=== PATIENT | male | born 1965 | race African-American/Black ===

== ENCOUNTER 2020-01-22 19:54 | Emergency (ER) | payer BC ==
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
--- NOTE | 2020-01-22 20:42 | CR ---
Lumbar spine: AP, lateral and coned-down lateral view centered to the lumbosacral junction were obtained. Slight posterior disc space narrowing is noted at L5-S1. Minimal spondylolisthesis also appears to be present at L5-S1 measuring about 2-3 mm most likely from degenerative apophyseal change. Slight posterior disc space narrowing is also noted at L1-2 and T12-L1. Mild diffuse disc space narrowing is noted within the lower thoracic spine. Pedicles are intact. Visualized transverse and spinous processes are intact. Joint space narrowing is noted within both sacroiliac joints. Impression: 1. Degenerative change as noted above. 2. Nothing acute is appreciated. Diagnostic code #2 This report was dictated in [place] Standard Time
[2020-01-22] MEDS ORDERED: Ibuprofen 600 MG Tab PO ONE (21:04)
[2020-01-22 21:09] VITALS: BP 144/82; PULSE 93
== END 2020-01-22 21:13 | disposition home or self-care (01) ==
LOC: MW.ED 19:54
DX: S39.012A Strain of muscle, fascia and tendon of lower back, initial encounter (principal); I10 Essential (primary) hypertension; Z79.899 Other long term (current) drug therapy; Y93.72 Activity, wrestling
CPT/HCPCS: 72100; 99283; A9270; 99282

== ENCOUNTER 2023-03-27 08:52 | Observation (INO) | payer OTHER ==
[2023-03-27] MEDS ORDERED: Sodium Chloride 0.9% 2.5 ML Syringe FLUSH PRN (09:03)
[2023-03-27] MEDS ORDERED: Sodium Chloride 0.9% 10 ML Syringe FLUSH PRN (09:03)
[2023-03-27] MEDS ORDERED: Aspirin 81 MG Tab.Chew PO ONE (09:09)
[2023-03-27 09:14] LABS: BASOPHILS PERCENT AUTO 0.9 % (0.0-1.5); EOSINOPHILS ABSOLUTE AUTO 0.1 K/uL (0.0-0.7); EOSINOPHILS PERCENT AUTO 1.6 % (0.0-7.0); HEMATOCRIT 39.5 % (38.0-50.0); HEMOGLOBIN 14.1 g/dL (13.0-17.0); LYMPHOCYTES ABSOLUTE AUTO 2.4 K/uL (0.6-2.4); LYMPHOCYTES PERCENT AUTO 56.2 % (16.0-40.0); MEAN CORPUSCULAR HEMOGLOBIN 32.4 pg (27.0-32.0); MEAN CORPUSCULAR HGB CONC 35.7 g/dL (31.0-37.0); MEAN CORPUSCULAR VOLUME 90.8 fL (80.0-98.0); MONOCYTES ABSOLUTE AUTO 0.6 K/uL (0.0-0.8); MONOCYTES PERCENT AUTO 12.9 % (0.0-15.0); NEUTROPHILS ABSOLUTE AUTO 1.2 K/uL (1.4-5.7); NEUTROPHILS PERCENT AUTO 28.4 % (48.0-80.0); NRBC ABSOLUTE 0 K/uL; PLATELET COUNT,PLT 182 K/uL (150-400); RED BLOOD CELL COUNT 4.35 M/uL (4.50-5.90); WHITE BLOOD CELL COUNT,WBC 4.34 K/uL (4.0-11.0)
[2023-03-27] MEDS ORDERED: Nitroglycerin 0.4 MG Tab.SL SL ONE (09:14)
[2023-03-27 09:50] LABS: BILIRUBIN TOTAL 0.8 mg/dL (0.2-1.0); CALCIUM 8.4 mg/dL (8.5-10.1); CARBON DIOXIDE,CO2 26.8 mmol/L (21.0-32.0); CREATININE 0.8 mg/dL (0.8-1.3); EST CRCL DRUG DOSING (CG) 88.62 mL/min; PROTEIN TOTAL,TP 8.1 g/dL (6.4-8.2)
[2023-03-27 10:42] LABS: INR 1.13 (0.86-1.11)
[2023-03-27] MEDS ORDERED: Lisinopril 10 MG Tab PO ONE (12:11)
[2023-03-27] MEDS ORDERED: Albuterol/Ipratropium 3.0-0.5 MG/3 ML Neb Soln NEB PRN (12:30)
[2023-03-27] MEDS ORDERED: Polyethylene Glycol 3350 Powder 17 GM Packet PO PRN (12:30)
[2023-03-27] MEDS ORDERED: Ondansetron 4 MG/2 ML SDV IVPUSH PRN (12:30)
[2023-03-27] MEDS ORDERED: Acetaminophen 325 MG Tab PO PRN (12:30)
[2023-03-27] MEDS ORDERED: Nitroglycerin 0.4 MG Tab.SL SL PRN (13:24)
[2023-03-27 13:56] LABS: HEMOGLOBIN A1C 5.4 %
[2023-03-27 14:16] LABS: TSH ULTRASENSITIVE 2.65 uIU/mL (0.36-3.74)
[2023-03-27] MEDS ORDERED: cloNIDine 0.1 MG Tab PO PRN (20:28)
[2023-03-28 06:24] LABS: BASOPHILS PERCENT AUTO 0.5 % (0.0-1.5); EOSINOPHILS ABSOLUTE AUTO 0.1 K/uL (0.0-0.7); EOSINOPHILS PERCENT AUTO 2.1 % (0.0-7.0); LYMPHOCYTES ABSOLUTE AUTO 2.3 K/uL (0.6-2.4); LYMPHOCYTES PERCENT AUTO 59.4 % (16.0-40.0); MEAN CORPUSCULAR HEMOGLOBIN 32.2 pg (27.0-32.0); MEAN CORPUSCULAR HGB CONC 35.1 g/dL (31.0-37.0); MEAN CORPUSCULAR VOLUME 91.6 fL (80.0-98.0); MONOCYTES ABSOLUTE AUTO 0.4 K/uL (0.0-0.8); MONOCYTES PERCENT AUTO 9.6 % (0.0-15.0); NEUTROPHILS ABSOLUTE AUTO 1.1 K/uL (1.4-5.7); NEUTROPHILS PERCENT AUTO 28.4 % (48.0-80.0); NRBC ABSOLUTE 0 K/uL; PLATELET COUNT,PLT 176 K/uL (150-400); RED BLOOD CELL COUNT 4.04 M/uL (4.50-5.90); WHITE BLOOD CELL COUNT,WBC 3.87 K/uL (4.0-11.0)
[2023-03-28 06:45] LABS: CALCIUM 8.5 mg/dL (8.5-10.1); CARBON DIOXIDE,CO2 27.4 mmol/L (21.0-32.0); CREATININE 0.9 mg/dL (0.8-1.3); EST CRCL DRUG DOSING (CG) 83.65 mL/min; POTASSIUM,K 3.3 mmol/L (3.5-5.1)
[2023-03-28] MEDS ORDERED: Potassium Chloride 20 MEQ Tab.ER PO ONE (07:24)
[2023-03-28] MEDS ORDERED: Lisinopril 10 MG Tab PO SCH (09:00)
[2023-03-28 11:21] VITALS: PULSE 52
[2023-03-28 12:29] VITALS: BP 155/88
== END 2023-03-28 12:50 | disposition home or self-care (01) ==
LOC: MW.ED 08:52 → MW.MS 11:41
PROVIDERS: ADMIT Internal Medicine; ATTEND Internal Medicine
DX: I24.9 Acute ischemic heart disease, unspecified (principal); M25.512 Pain in left shoulder; I16.0 Hypertensive urgency; R94.31 Abnormal electrocardiogram [ECG] [EKG]; Z79.899 Other long term (current) drug therapy
CPT/HCPCS: 36415; 71045; 73030; 80048; 80053; 80061; 82607; 83036; 84443; 84484; 85025; 85379; 85610; 93005; 93306; 99285; A9270; G0378; J3490; 99284

== ENCOUNTER 2025-08-05 06:56 | Day surgery (SDC) | payer OTHER ==
[2025-08-05] MEDS ORDERED: Propofol 200 MG/20 ML SDV ONE (07:29)
[2025-08-05] MEDS: Lactated Ringers 1,000 ML IV SCH (07:32)
[2025-08-05 10:29] VITALS: BP 137/70; PULSE 48
== END 2025-08-05 09:09 | disposition home or self-care (01) ==
LOC: MW.SDS 06:56
PROVIDERS: ATTEND Surgery
DX: Z12.11 Encounter for screening for malignant neoplasm of colon (principal); K63.89 Other specified diseases of intestine; I10 Essential (primary) hypertension; Z79.899 Other long term (current) drug therapy
CPT/HCPCS: 45380; J1596; J2003; J2704; J7120; 00811

== ENCOUNTER 2025-08-11 14:23 | Emergency (ER) | payer OTHER ==
[2025-08-11 14:57] VITALS: PULSE 65
[2025-08-11 16:02] VITALS: BP 198/101
== END 2025-08-11 16:02 | disposition home or self-care (01) ==
LOC: MW.ED 14:23
DX: S00.03XA Contusion of scalp, initial encounter (principal); G44.319 Acute post-traumatic headache, not intractable; Z79.899 Other long term (current) drug therapy; V29.99XA Rider (driver) (passenger) of other motorcycle injured in unspecified traffic accident, initial encounter
CPT/HCPCS: 70450; 72125; 99284; A9270

== ENCOUNTER 2025-09-16 16:52 | Emergency (ER) | payer OTHER ==
[2025-09-16 20:22] VITALS: BP 160/76; PULSE 55
== END 2025-09-16 20:22 | disposition home or self-care (01) ==
LOC: MW.ED 16:52
DX: R51.9 Headache, unspecified (principal); F07.81 Postconcussional syndrome; I10 Essential (primary) hypertension; Z79.899 Other long term (current) drug therapy
CPT/HCPCS: 70450; 99284; A9270